=== PATIENT | male | born 1940 | race Caucasian/White ===

== ENCOUNTER → 2020-03-06 09:01 | Outpatient (CLI) | payer BC, SELFPAY ==
--- NOTE | 2020-03-06 09:20 | XR_ITS ---
PROCEDURE: XR HAND LT MIN 3V CLINICAL INDICATION: LT HAND ARTHRITIS Pain COMPARISON: No exams were available for comparison FINDINGS: No fracture or dislocation. No lytic or blastic change. There is normal mineralization. The joint spaces are well-preserved. No significant degenerative/arthritic changes. No erosive changes evident. Other findings:None. IMPRESSION: No acute findings. Dictated by: Chris Westbrook MD 03/07/2020 07:31 Electronically signed by Chris Westbrook MD in [place] 03/07/2020 07:31
== END ==
PROVIDERS: PCP Family Medicine; Visit Provider Orthopaedic Surgery
DX: M13.842 Other specified arthritis, left hand (principal)
CPT/HCPCS: 73130